=== PATIENT | male | born 1975 | race American Indian/Alaskan Native ===

== ENCOUNTER 2020-05-01 19:13 | Emergency (ER) | payer SELFPAY ==
[2020-05-01] MEDS ORDERED: FAMOTIDINE 20 MG/2 ML INJ IV ONE (20:08)
[2020-05-01] MEDS ORDERED: SODIUM CHLORIDE 0.9% 1000 ML 1,000 ML IV ONE (20:08)
[2020-05-01] MEDS ORDERED: ONDANSETRON 4 MG/2 ML INJ IV ONE (20:08)
[2020-05-01] MEDS ORDERED: MORPHINE 4 MG/1 ML INJ IV ONE (20:08)
--- NOTE | 2020-05-01 20:12 | Event Note ---
ED Screening Note Date of service: 05/01/20 Time: 20:09 ED Screening Note: Patient is a 45 yo AA male with a h/o PUD and Heavy tobacco abuse who presents to the ED with c/o acute onset persistent diffuse abdominal pain, nausea and vomiting for the last 3 days. Patient states that he has not had any bowel movements in 4 days. Patient denies dizziness, fever, chills, cough, sore throat, chest pain, dyspnea, vision changes, back pain, dysuria, hematuria, testicular pain, hematemesis or hemoptysis and hematochezia. This initial assessment/diagnostic orders/clinical plan/treatment(s) is/are subject to change based on patients health status, clinical progression and re- assessment by fellow clinical providers in the ED. Further treatment and workup at subsequent clinical providers discretion. Patient/guardian urged not to elope from the ED as their condition may be serious if not clinically assessed and managed. Initial orders include: CBC, CMP, LIPASE, UA, Abdo-pelvis CT scan w/contrast
[2020-05-01 20:36] LABS: Basophils # (Auto) 0.1 K/mm3 (0.0-0.1); Basophils % (Auto) 0.4 % (0.0-1.8); Eosinophils % (Auto) 0.1 % (0.0-4.3); Hemoglobin 17.1 gm/dl (11.8-15.2); Lymphocytes # (Auto) 2.2 K/mm3 (1.2-5.4); Lymphocytes % (Auto) 13.8 % (13.4-35.0); Mean Corpuscular HGB Conc 33 % (32-34); Mean Corpuscular Volume 88 fl (84-94); Monocytes # (Auto) 1.3 K/mm3 (0.0-0.8); Monocytes % (Auto) 8.4 % (0.0-7.3); Platelet Count 243 K/mm3 (140-440); Red Blood Count 5.89 M/mm3 (3.65-5.03); Red Cell Distribution Width 14.8 % (13.2-15.2)
--- NOTE | 2020-05-01 20:50 | Emergency Department Report ---
ED Abdominal Pain HPI - General Chief Complaint: Abdominal Pain Stated Complaint: ABD PAIN PUI?: No Time Seen by Provider: 05/01/20 20:30 Source: patient Mode of arrival: Ambulatory Limitations: No Limitations - History of Present Illness Initial Comments: Patient is a 45-year-old male that presents emergency room with complaints of abdominal pain, nausea, vomiting, constipation. Patient dates his been on for 4 days. Patient states his symptoms and pain are worsening. Patient states he cannot hold any food down. Patient denies blood in his vomitus. Patient dates he is not had a bowel movement for 4 days. Patient denies fever and chills. Patient states he has not been tested for COVID-19. Patient states his pain is a 10 out of 10. Patient dates his pain is better with rest. Patient dates his pain is worse with movement and vomiting. Patient states that eating worsens his vomiting. Patient denies recent travel. Patient denies recent international travel. Patient denies exposure to the novel coronavirus. Patient denies sick contacts. Patient denies fever and chills. Patient denies cough. Patient denies diarrhea. Patient denies coming in contact with anybody with symptoms of the novel coronavirus. MD Complaint: abdominal pain -: Sudden Location: diffuse Radiation: none Migration to: no migration Severity: severe Quality: stabbing Improves With: rest Worsens With: eating, vomiting, movement Associated Symptoms: nausea, vomiting. denies: diarrhea, fever, chills, constipation, dysuria, hematemesis, hematochezia, melena, hematuria, anorexia, syncope - Related Data Previous Rx's Medication Instructions Recorded Last Taken Type Esomeprazole Magnesium [NexIUM] 40 mg PO QDAY #30 05/01/20 Unknown Rx Ondansetron [Zofran Odt] 4 mg PO Q6HR PRN #20 tab.rapdis 05/01/20 Unknown Rx Allergies Allergy/AdvReac Type Severity Reaction Status Date / Time No Known Allergies Allergy Unverified 05/01/20 20:21 ED Review of Systems ROS: Stated complaint: ABD PAIN Other details as noted in HPI Constitutional: denies: chills, fever Eyes: denies: eye pain, eye discharge, vision change ENT: denies: ear pain, throat pain Respiratory: denies: cough, shortness of breath, wheezing Cardiovascular: denies: chest pain, palpitations Endocrine: no symptoms reported Gastrointestinal: abdominal pain, nausea, vomiting, constipation. denies: george rrhea, hematemesis, melena, hematochezia Genitourinary: denies: urgency, dysuria Musculoskeletal: denies: back pain, joint swelling, arthralgia Skin: denies: rash, lesions Neurological: denies: headache, weakness, paresthesias Psychiatric: denies: anxiety, depression Hematological/Lymphatic: denies: easy bleeding, easy bruising ED Past Medical Hx - Past Medical History Previous Medical History?: Yes Additional medical history: Stomach Ulcer - Surgical History Past Surgical History?: No - Family History Family history: no significant - Social History Smoking Status: Never Smoker Substance Use Type: None - Medications Home Medications: Home Medications Medication Instructions Recorded Confirmed Last Taken Type Esomeprazole Magnesium [NexIUM] 40 mg PO QDAY #30 capsule.dr 05/01/20 Unknown Rx Ondansetron [Zofran Odt] 4 mg PO Q6HR PRN #20 tab.rapdis 05/01/20 Unknown Rx ED Physical Exam - General Limitations: No Limitations General appearance: alert, in no apparent distress - Head Head exam: Present: atraumatic, normocephalic - Eye Eye exam: Present: normal appearance - ENT ENT exam: Present: mucous membranes moist - Neck Neck exam: Present: normal inspection - Respiratory Respiratory exam: Present: normal lung sounds bilaterally. Absent: respiratory distress - Cardiovascular Cardiovascular Exam: Present: regular rate, normal rhythm. Absent: systolic murmur, diastolic murmur, rubs, gallop - GI/Abdominal GI/Abdominal exam: Present: soft, tenderness (Generalized tenderness to palpation), normal bowel sounds - Rectal Rectal exam: Present: deferred - Extremities Exam Extremities exam: Present: normal inspection - Back Exam Back exam: Present: normal inspection - Neurological Exam Neurological exam: Present: alert, oriented X3 - Psychiatric Psychiatric exam: Present: normal affect, normal mood - Skin Skin exam: Present: warm, dry, intact, normal color. Absent: rash ED Course Vital Signs 05/01/20 05/01/20 05/01/20 20:08 20:40 20:45 Temperature 99.1 F Pulse Rate 45 L 101 H Respiratory 16 20 14 Rate Blood Pressure 127/105 O2 Sat by Pulse 98 Oximetry 05/01/20 05/01/20 05/01/20 21:00 21:24 21:30 Temperature Pulse Rate 94 H 104 H 89 Respiratory 11 L 14 Rate Blood Pressure 134/97 134/97 134/97 O2 Sat by Pulse 95 93 Oximetry 05/01/20 05/01/20 05/01/20 21:46 22:00 22:16 Temperature Pulse Rate 76 89 96 H Respiratory 13 13 12 Rate Blood Pressure 131/93 135/92 133/94 O2 Sat by Pulse 96 96 97 Oximetry 05/01/20 22:30 Temperature Pulse Rate 85 Respiratory 16 Rate Blood Pressure 126/90 O2 Sat by Pulse 98 Oximetry - Reevaluation(s) Reevaluation #1: Patient states his abdominal pain is gone. Patient states he is not having any nausea or vomiting. Patient tolerated ice chips and a p.o. challenge. Patient will be given a GI cocktail. 05/01/20 22:44 Reevaluation #2: Patient states he is feeling much better. Patient states he tolerated p.o. intake and a GI cocktail. Patient states his pain has resolved. Patient states his nausea has resolved. I discussed all results and clinical findings with patient. I discussed plan of care with patient. Patient agrees with plan of care. Patient is stable for discharge. Patient will be discharged home. Patient given discharge instructions. Patient voiced understanding of discharge instructions. 05/01/20 23:07 ED Medical Decision Making - Lab Data Result diagrams: 05/01/20 20:15 05/01/20 20:15 - Radiology Data Radiology results: report reviewed CT ABDOMEN AND PELVIS WITH CONTRAST INDICATION / CLINICAL INFORMATION: Abdominal pain, N/V. TECHNIQUE: Axial CT images were obtained through the abdomen and pelvis after 100 cc Omni [address] scans at this location are performed using CT dose reduction for ALARA by means of automated exposure control. COMPARISON: None available. FINDINGS: LOWER CHEST: No significant abnormality. HEPATOBILIARY: No significant abnormality. PANCREAS/SPLEEN/ADRENALS: No significant abnormality. GENITOURINARY: No significant abnormality. GASTROINTESTINAL/MESENTERY: Stomach wall demonstrates mild diffuse thickening which can be seen in the setting of gastritis. Small and large bowel demonstrate no evidence of obstruction or inflammation. No free air or significant free fluid is visualized. RETROPERITONEUM: No significant adenopathy. REPRODUCTIVE ORGANS: No significant abnormality. VASCULAR: No significant abnormality. BODY WALL: No significant abnormality. SKELETAL SYSTEM: Left-sided os acetabuli. No acute fracture or aggressive osseous lesion. IMPRESSION: 1. Mild diffuse stomach wall thickening which can be seen in the setting gastritis. 2. Additional findings as above. - Medical Decision Making Patient is a 43-year-old male presents emergency room with complaints abdominal pain, nausea, vomiting, constipation. Patient says been going on for 4 days. Patient symptoms worsening. Patient had labs done which were consistent with elevated WBC and dehydration. Patient given fluids in the ER. Patient also given antiemetics and pain meds. Patient responded well to treatment. Patient nausea and pain resolved. Patient had a CT scan done. Patient CT shows gastritis. Patient tolerated p.o. challenge and tolerated a GI cocktail. Patient stated he felt much better after the treatment and the GI cocktail. Patient responded well to treatment. Patient essentially asymptomatic upon discharge. Patient stable for discharge. Patient discharged home. Patient heart rate was initially bradycardic but after the patient was moved to the acute treatment room and connected to the color television console monitor, the patient's heart rate was within normal limits. - Differential Diagnosis Gastroenteritis, gastritis, SBO, constipation, N/V. Abdominal pain Critical care attestation.: If time is entered above; I have spent that time in minutes in the direct care of this critically ill patient, excluding procedure time. ED Disposition Clinical Impression: Gastroenteritis Abdominal pain Qualifiers: Abdominal location: generalized Qualified Code(s): R10.84 - Generalized abdominal pain Gastritis Qualifiers: Gastritis type: unspecified gastritis Chronicity: acute Gastritis bleeding: without bleeding Qualified Code(s): K29.00 - Acute gastritis without bleeding Nausea & vomiting Qualifiers: Vomiting type: unspecified Vomiting Intractability: non-intractable Qualified Code(s): R11.2 - Nausea with vomiting, unspecified Constipation Qualifiers: Constipation type: other constipation type Qualified Code(s): K59.09 - Other constipation Disposition: DC-01 TO HOME OR SELFCARE Is pt being admited?: No Does the pt Need Aspirin: No Condition: Stable Instructions: Gastritis, Adult, [id number], Abdominal Pain, Adult, Viral Gastroenteritis, Adult, [id number], Chronic Constipation, Constipation, Adult, Nausea and Vomiting, Adult, Probiotics Additional Instructions: Patient to follow-up with primary care in 2 to 3 days. Patient to follow-up with gastroenterology in 2 to 3 days. Patient to rest. Patient to increase water. Patient to eat a brat diet. Patient to eat a high-fiber diet. Patient to eat a GERD diet. Patient to take Tylenol as needed for pain. Patient to take meds as directed. Patient to return to the ER if condition worsens, changes or new symptoms arise. Prescriptions: Esomeprazole Magnesium [NexIUM] 40 mg PO QDAY #30 capsule. Ondansetron [Zofran Odt] 4 mg PO Q6HR PRN #20 tab.rapdis PRN Reason: Nausea And Vomiting [facility]: [facility] MD DONN [Primary Care Provider] - 2-3 Days Time of Disposition: 23:07
[2020-05-01 20:51] LABS: Alanine Aminotransferase 17 units/L (7-56); Albumin 4.9 g/dL (3.9-5); BUN/Creatinine Ratio 16; Blood Urea Nitrogen 16 mg/dL (9-20); Calcium 9.9 mg/dL (8.4-10.2); Hemolysis Index 23
--- NOTE | 2020-05-01 21:51 | Cat Scan Report ---
CT ABDOMEN AND PELVIS WITH CONTRAST INDICATION / CLINICAL INFORMATION: Abdominal pain, N/V. TECHNIQUE: Axial CT images were obtained through the abdomen and pelvis after 100 cc Omni [address] scans at this location are performed using CT dose reduction for ALARA by means of automated expos ure control. COMPARISON: None available. FINDINGS: LOWER CHEST: No significant abnormality. HEPATOBILIARY: No significant abnormality. PANCREAS/SPLEEN/ADRENALS: No significant abnormality. GENITOURINARY: No significant abnormality. GASTROINTESTINAL/MESENTERY: Stomach wall demonstrates mild diffuse thickening which can be seen in th e setting of gastritis. Small and large bowel demonstrate no evidence of obstruction or inflammation. No free air or significant free fluid is visualized. RETROPERITONEUM: No significant adenopathy. REPRODUCTIVE ORGANS: No significant abnormality. VASCULAR: No significant abnormality. BODY WALL: No significant abnormality. SKELETAL SYSTEM: Left-sided os acetabuli. No acute fracture or aggressive osseous lesion. IMPRESSION: 1. Mild diffuse stomach wall thickening which can be seen in the setting gastritis. 2. Additional findings as above. Signer Name: Otis Miranda MD Signed: 05/01/2020 9:46 PM Workstation Name: [id number]
[2020-05-01] MEDS ORDERED: LIDOCAINE VISCOUS 2% 15 ML ORAL LIQD PO ONE (22:39)
[2020-05-01] MEDS ORDERED: ALUM-MAG HYDROXIDE-SIMETHICONE 200-200-20MG/5ML ORAL LIQD 30 ML PO ONE (22:39)
[2020-05-01 22:44] VITALS: BP 126/90
== END 2020-05-01 22:50 | disposition home or self-care (01) ==
LOC: ED 19:13
DX: K52.9 Noninfective gastroenteritis and colitis, unspecified (principal); K29.70 Gastritis, unspecified, without bleeding; K59.00 Constipation, unspecified; R10.84 Generalized abdominal pain; R11.2 Nausea with vomiting, unspecified; Z79.899 Other long term (current) drug therapy
CPT/HCPCS: 36415; 74177; 80053; 83690; 85025; 96361; 96374; 96375; 99284; J2270; J2405; J7030; Q9967